=== PATIENT | female | born 1960 | race Caucasian/White ===

== ENCOUNTER 2024-04-11 14:22 | Emergency (ER) | payer BC, SELFPAY ==
--- NOTE | 2024-04-11 | ECG_ITS ---
Test Reason : CHEST PAIN Blood Pressure : / mmHG Vent. Rate : 084 BPM Atrial Rate : 084 BPM P-R Int : 176 ms QRS Dur : 076 ms QT Int : 368 ms P-R-T Axes : 057 033 025 degrees QTc Int : 434 ms Normal sinus rhythm Normal ECG When compared with ECG of 29-JUL-2012 08:21, No significant change was found Referred By: Generic ED Physician Electronically Signed By:LATANYA CH
--- NOTE | ~2024-04-11 | CT_ITS ---
EXAMINATION: CT HEAD WITHOUT IV CONTRAST CLINICAL INFORMATION: Uncontrolled HTN, VELIZ, vision changes COMPARISON: MRI brain 02/03/2013 TECHNIQUE: Contiguous axial imaging was performed from the skull base to vertex without intravenous contrast. Sagittal and coronal reformatted images were obtained. This CT examination was performed using dose optimization techniques as appropriate, variously including the following: * Automated exposure control * Adjustment of mA and/or kV according to patient size (this includes techniques or standardized protocols for targeted exams where dose is matched to indication/reason for exam; i.e. extremities or head) Use of iterative reconstruction technique DLP: 591 mGy-cm FINDINGS: There is no evidence of acute intracranial hemorrhage. No mass-effect or ventricular shift is noted. No acute, territorial loss of jonas-white differentiation. The ventricles and sulci are appropriate in size and configuration for the patient's stated age. Trace periventricular and subcortical white matter hypodensity is nonspecific but likely represents chronic microvascular ischemic change. No depressed calvarial fracture. Under pneumatized right frontal sinus. The mastoid air cells are clear. CT/CT head/brain wo IV con IMPRESSION: No acute intracranial hemorrhage or territorial loss jonas-white differentiation. Electronically signed by: Alessandro Ochoa MD 04/11/2024 06:10 PM EDT RP
--- NOTE | ~2024-04-11 | XR_ITS ---
EXAMINATION: XR CHEST CLINICAL INFORMATION: Chest pain COMPARISON: None available. TECHNIQUE: Frontal view of the chest was obtained. FINDINGS: Slight interstitial prominence. Bilateral groin. Slight elevation right hemidiaphragm. No pneumothorax. Trachea is midline. Cardiac mediastinal silhouette is not enlarged. Lower cervical spine hardware. Soft tissues are unremarkable. XR/XR chest 1V IMPRESSION: 1. Slight interstitial prominence. 2. Bilateral groin. 3. Slight elevation right hemidiaphragm. Electronically signed by: Leonid Umaña MD 04/11/2024 03:23 PM EDT
[2024-04-11 14:27] VITALS: BP 174/109; BP 180/120; PULSE 106; PULSE 77; RESP 18; TEMP 36.6; O2SAT 98
--- NOTE | 2024-04-11 15:29 | ED_ITS ---
HPI - General Adult General Chief complaint: General Medical Stated complaint: CP,HIGH BP 180/110 PER EMS Time Seen by Provider: 04/11/24 15:14 History of Present Illness ED Provider: Master HPI narrative: 63 y/o F patient; PMH HTN; presents from home via EMS with report of elevated blood pressure and chest pain. She reports associated headache, blurry vision, and lightheadedness. Symptoms for approx the last 2 weeks. She denies: nausea/vomiting/diarrhea, fever or chills, diarrhea, syncope, shortness of breath, cough/congestion. She states her blood pressures are typically elevated as she does not take blood pressure medication. She states a primary doctor approx 16 years ago recommended against blood pressure medication and she has not followed up about her blood pressure since then. She is an active smoker but denies alcohol use. Denies drug use other than marijuana. Related Data Previous Rx's ?Medication ?Instructions ?Recorded amlodipine 10 mg tablet 10 mg PO DAILY #30 tabs 04/11/24 Allergies Allergy/AdvReac Type Severity Reaction Status Date / Time No Known Allergies Allergy Verified 04/11/24 14:31 Review of Systems 2 Review of Systems: Yes all other systems are reviewed and are negative Neurologic: Denies Abnormal speech present and Denies Sensory deficit (Neuro) [facility] Past Medical History Attestation statement: The following information was validated with the patient. Source: unable to obtain Social History Social History Advance Directives: No Do you have a plan to hurt others: No Plan Physical Exam ED Vital Signs: Vital Signs - 24 hr 04/11/24 14:27 Temperature 97.9 F Pulse Rate 77 Respiratory Rate 18 Blood Pressure 174/109 H Pulse Oximetry 98 Oxygen Delivery Method Room Air BMI result Body Mass Index 30.0 Patient is markedly hypertensive Const General: cooperative Orientation/consciousness: patient oriented x3 HENMT Head: Yes normal to inspection and Yes atraumatic Eyes General: appearance normal, both eyes and all related structures Pupils: Equal, round and reactive pupils present EOM: EOMs intact bilaterally and No Nystagmus present Neck Neck: Yes normal visual inspection, Yes full ROM, Yes supple and No tender Chest Chest palpation & inspection: normal inspection of the chest and normal palpation of entire chest wall Resp Effort & Inspection: normal respiratory effort, able to speak in complete sentences, no cough and no respiratory distress Auscultation: clear to auscultation bilaterally Cardio Rate: regular rate Rhythm: regular rhythm Peripheral pulses: Peripheral pulses 2+ throughout GI Inspection: Yes normal to inspection, No Abdominal wall edema and No distended Palpation (GI): Soft to palpation, not firm, nontender, no guarding and not rigid Auscultation: normal bowel sounds Back/Spine/Pelvis Back: No back tenderness Neuro General: patient oriented x3 and gait normal Cranial nerves: Yes Equal, round and reactive pupils present and No Nystagmus present Cognition (Neuro): normal cognition Speech: No Abnormal speech present Motor exam (neuro): 5/5 motor strength present throughout Sensory Exam: No Sensory deficit (Neuro) Coordination: [id number] test normal and [id number] test normal Course Course Course Narrative: Patient is markedly hypertensive. Will obtain EKG, CXR, and basic labs. Labs reviewed. No leukocytosis. Troponin negative. 2nd troponin ordered. Ua contaminated but patient is not having urinary symptoms. CXR unremarkable. Added CT Head. CT head unremarkable. 2nd troponin negative. Patient declined nitroglycerin. No evidence of end-organ damage at this time. Discussed with patient option for admission for uncontrolled hypertension given risk of hypertensive urgency. Patient declined and would prefer to be discharged to home. Discussed with patient that uncontrolled hypertension can cause multiple permanent deficits. Patient voiced understanding. Will start on Amlodipine 10mg PO OD. Recommend patient follow up with her PCP within the next 1 - 2 days. Plan: Discharge to home with PCP follow up Return precautions given Medical Decision Making Lab Data 04/11/24 15:29 04/11/24 15:29 Labs: Lab Results 04/11/24 04/11/24 04/11/24 Range/Units 15:29 15:56 17:56 WBC 9.5 (4.8-10.8) X10*3/uL RBC 4.82 (4.20-5.50) X10*6/uL Hgb 14.3 (12.0-16.0) g/dl Hct 43.0 (37.0-47.0) % MCV 89.2 (80.0-98.0) fL MCH 29.7 (27.0-33.0) pg MCHC 33.3 (31.0-35.0) g/dl RDW 13.1 (11.0-16.0) % Plt Count 226 (160-400) X10*3/uL MPV 9.5 (9.4-12.3) fL Immature Gran % (Auto) 0.4 (0.0-0.4) % Neut % (Auto) 59.6 (45-73) % Lymph % (Auto) 30.7 (20-40) % Monona % (Auto) 6.8 (2-11) % Eos % (Auto) 1.4 (0-4) % Baso % (Auto) 1.1 (0-2) % Lymph # (Auto) 2.9 (1.2-4.9) X10*3/uL Monona # (Auto) 0.7 (0.1-1.2) X10*3/uL Eos # (Auto) 0.1 (0.0-0.4) X10*3/uL Baso # (Auto) 0.1 (0.0-0.2) X10*3/uL Abs Immat Gran (auto) 0.04 H (0.00-0.03) X10*3/uL Absolute Neuts (auto) 5.7 (2.0-8.3) x10*3/uL Absolute Nucleated RBC 0.000 (0.0-0.012) X10*3/uL Nucleated RBC % (auto) 0.0 (0.0-0.2) /100WBC Sodium 140 (135-145) mmol/L Potassium 4.2 (3.3-5.1) mmol/L Chloride 107 (96-108) mmol/L Carbon Dioxide 25 (22-29) mmol/L Anion Gap 12 (12-20) BUN 16 (9-16) mg/dL Creatinine 0.94 (0.5-1.4) mg/dL Estim Creat Clear Calc 64.0 Estimated GFR > 60 Random Glucose 79 (60-115) mg/dL Calcium 10.0 (8.4-10.2) mg/dL Magnesium 2.2 (1.6-2.6) mg/dL Total Bilirubin 0.2 (0.0-1.0) mg/dL Direct Bilirubin < 0.2 (0.0-0.5) mg/dL AST 28 (5-31) U/L ALT 36 H (0-31) U/L Alkaline Phosphatase 89 (39-117) U/L Troponin I High Sens 3.4 2.8 (<3.5-17.0) ng/L Total Protein 6.9 (6.5-8.0) g/dL Albumin 4.0 (3.5-5.0) g/dL Urine Color Yellow Urine Appearance Cloudy Urine pH 5.5 (5.0-9.0) Ur Specific Irving 1.020 (1.005-1.025) Urine Protein Negative (Neg-Trace) mg/dL Urine Glucose (UA) Negative (Negative) mg/dL Urine Ketones Negative (Negative) mg/dL Urine Blood Negative (Negative) Urine Nitrite Negative (Negative) Ur Leukocyte Esterase Trace H (Negative) Urine RBC 0-2 (0-2) /HPF Urine WBC 6-10 H (0-5) /HPF Ur Squamous Epith Cells 11-20 (0-2) /HPF Urine Bacteria 1+ (None Seen) Hyaline Casts 0-2 (0-2) /LPF Independent Interpretation I performed an independent interpretation of an: EKG Interpretation: NSR 84BPM without ischemic changes Radiology Impression Discussion of test interpretation with radiology: I have reviewed the radiologist's reading. Radiologist Impression: Ordering Physician: Tish Hobson Date of Service: 04/11/24 Procedure(s): XR chest 1V Accession Number(s): [id number] cc: Physician,None ; Tish Hobson~ EXAMINATION: XR CHEST CLINICAL INFORMATION: Chest pain COMPARISON: None available. TECHNIQUE: Frontal view of the chest was obtained. FINDINGS: Slight interstitial prominence. Bilateral groin. Slight elevation right hemidiaphragm. No pneumothorax. Trachea is midline. Cardiac mediastinal silhouette is not enlarged. Lower cervical spine hardware. Soft tissues are unremarkable. XR/XR chest 1V IMPRESSION: 1. Slight interstitial prominence. 2. Bilateral groin. 3. Slight elevation right hemidiaphragm. Electronically signed by: Leonid Umaña MD 04/11/2024 03:23 PM EDT RP Discharge Plan Discharge Clinical Impression: Hypertension, Chest pain Patient Disposition: Home, Self-Care Instructions: Chest Pain (DC), Hypertension (ED) Additional Instructions: As we discussed, you were seen for feeling unwell, chest pain, and high blood pressure. Your work up was reassuring other than your high blood pressure. I have sent a prescription for amlodipine to your pharmacy. Please take this once a day. Follow up with your PCP within the next 1 - 2 days for re-evaluation. Return to the emergency department for: Chest pain Difficulty breathing Passing out Prescriptions: New amlodipine 10 mg tablet 10 mg PO DAILY Qty: 30 0RF Print Language: Albanian
[2024-04-11 15:43] LABS: MANUAL DIFF FLAG NO
[2024-04-11 15:46] LABS: Basophils Absolute Auto 0.1 X10*3/uL (0.0-0.2); Basophils Percent Auto 1.1 % (0-2); Eosinophils Absolute Auto 0.1 X10*3/uL (0.0-0.4); Eosinophils Percent Auto 1.4 % (0-4); Hemoglobin 14.3 g/dl (12.0-16.0); Imm Gran Abs Auto 0.04 X10*3/uL (0.00-0.03); Imm Gran Pct Auto 0.4 % (0.0-0.4); Lymphocytes Absolute Auto 2.9 X10*3/uL (1.2-4.9); Lymphocytes Percent Auto 30.7 % (20-40); Mean Corpuscular HGB Conc 33.3 g/dl (31.0-35.0); Mean Corpuscular Hemoglobin 29.7 pg (27.0-33.0); Mean Corpuscular Volume 89.2 fL (80.0-98.0); Mean Platelet Volume 9.5 fL (9.4-12.3); Monocytes Absolute Auto 0.7 X10*3/uL (0.1-1.2); Monocytes Percent Auto 6.8 % (2-11); Neutrophils Absolute Auto 5.7 x10*3/uL (2.0-8.3); Neutrophils Percent Auto 59.6 % (45-73); Platelet Count 226 X10*3/uL (160-400); Red Blood Count 4.82 X10*6/uL (4.20-5.50); Red Cell Distribution Width 13.1 % (11.0-16.0); White Blood Count 9.5 X10*3/uL (4.8-10.8)
[2024-04-11 16:01] LABS: Alanine Aminotransferase 36 U/L (0-31); Alkaline Phosphatase 89 U/L (39-117); Anion Gap 12 (12-20); Aspartate Amino Transferase 28 U/L (5-31); Bilirubin Direct < 0.2 mg/dL (0.0-0.5); Bilirubin Total 0.2 mg/dL (0.0-1.0); Blood Urea Nitrogen 16 mg/dL (9-16); Carbon Dioxide 25 mmol/L (22-29); Chloride 107 mmol/L (96-108); Estimated Glomerular Filt Rate > 60; Glucose Random 79 mg/dL (60-115); Magnesium 2.2 mg/dL (1.6-2.6); Potassium 4.2 mmol/L (3.3-5.1); Sodium 140 mmol/L (135-145); Total Protein 6.9 g/dL (6.5-8.0)
[2024-04-11 16:02] LABS: Appearance Urine Cloudy; Color Urine Yellow; Glucose Urine UA Negative (Negative); Leukocyte Esterase Urine Trace (Negative); Nitrite Urine Negative (Negative); PH 5.5 (5.0-9.0); UMIC TRIGGER UACC YES; Urine Blood Negative (Negative); Urine Ketones Negative (Negative); Urine Protein Negative (Neg-Trace)
[2024-04-11 16:03] LABS: Troponin-I High Sensitivity 3.4 ng/L (<3.5-17.0)
[2024-04-11 16:05] LABS: Bacteria Urine 1+ (None Seen); Hyaline Casts Urine 0-2 /LPF (0-2); RBC Urine 0-2 /HPF (0-2); UACC Culture Trigger YES
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
[2024-04-11 18:23] LABS: Troponin-I High Sensitivity 2.8 ng/L (<3.5-17.0)
[2024-04-11 18:30] VITALS: BP 174/108
== END 2024-04-11 19:08 | disposition home or self-care (01) ==
PROVIDERS: Physician Assistant; Emergency Provider Emergency Medicine
DX: R07.89 Other chest pain (principal); R51.9 Headache, unspecified; I10 Essential (primary) hypertension; Z79.899 Other long term (current) drug therapy
CPT/HCPCS: 36415; 70450; 71045; 80048; 80076; 81001; 81003; 83735; 84484; 85025; 87086; 87088; 87186; 93005; 99284

== ENCOUNTER 2024-04-13 12:08 | Emergency (ER) | payer SELFPAY ==
[2024-04-13 12:15] VITALS: BP 177/101; BP 220/130; PULSE 106; PULSE 84; RESP 18; TEMP 36.9; O2SAT 98; BMI 25.7
--- NOTE | 2024-04-13 12:26 | ED.GENADULT ---
HPI - General Adult General Chief complaint: General Medical Stated complaint: PT STS STRESS @WK,HIGH BP 220/130,VELIZ,VISION CHANGE Time Seen by Provider: 04/13/24 12:13 Source: patient, EMS and old records reviewed Mode of arrival: EMS Limitations: no limitations History of Present Illness ED Provider: ROBBIE MACIAS narrative: 63 yo female with PMH of uncontrolled HTN, seizures not on AEDs, just seen here on 04/11 negative EKG, normal Cr, trop flat x 2, CT head normal - seen for BP elevation noted at work on 04/11 her work up was reassuring and she was discharged on 10mg amlodipine she has never been on HTN medications despite high readings by doctors office. She was not able to fill the Rx today. 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 She has no chest pain no change in headache. She never took the medication but did pick it up today. MD complaint: HTN Onset (ago): year(s) Location: head Radiation: non-radiation Severity: mild Quality: aching Pain Consistency: constant Relieving factors: none Exacerbating factors: none Associated symptoms: denies other symptoms Treatments prior to arrival: none Related Data Previous Rx's ?Medication ?Instructions ?Recorded amlodipine 10 mg tablet 10 mg PO DAILY #30 tabs 04/11/24 Allergies Allergy/AdvReac Type Severity Reaction Status Date / Time No Known Allergies Allergy Verified 04/13/24 12:18 Review of Systems Review of Systems: Constitutional : No Fever, No Chills, No Fatigue ENT/Mouth : No sore throat, No Rhinorrhea Eyes: No Eye Pain, No Swelling, No Redness Cardiovascular : No Chest Pain, No SOB, No Dyspnea on Exertion Respiratory : No Cough, No Sputum Gastrointestinal : No Nausea, No Vomiting, No Diarrhea, No abdominal Pain Genitourinary : No Dysuria, No Urinary Frequency, No Hematuria, Musculoskeletal : No joint pain, No Myalgias, No Joint Swelling Skin : No Skin Lesions, No rash Neuro : No Weakness, No Numbness, No Dizziness, positive Headache Psych : No Anxiety/Panic, No Depression Heme/Lymph: No Bruising, No Bleeding,No Lymphadenopathy Endocrine : No Polyuria, No Polydipsia All other systems reviewed and are negative PMFSH Past Medical History Attestation statement: The following information was validated with the patient. Source: old records reviewed Medical History Hypertension Anxiety Social History Social History Substance Use Type: Marijuana Physical Exam ED Vital Signs: Vital Signs - 24 hr 04/13/24 12:15 Temperature 98.5 F Pulse Rate 84 Respiratory Rate 18 Blood Pressure 177/101 H Pulse Oximetry 98 Oxygen Delivery Method Room Air BMI result Body Mass Index 25.7 Appearance: Alert. Oriented X3. No acute distress. Eyes: Pupils equal, round and reactive to light. ENT: Pharynx normal. Neck: Normal inspection. Neck supple. CVS: Normal heart rate and rhythm. Pulses normal. Respiratory: No respiratory distress. Breath sounds normal. Abdomen: Soft and nontender. Skin: Skin warm and dry. Normal skin color. Normal skin turgor. Extremities: No lower extremity edema. No calf ttp Neuro: Oriented X 3. No motor deficit. No sensory deficit. 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 History obtained from or confirmed by: EMS External Record Review External record reviewed: Inpatient record Discharge Plan Discharge Clinical Impression: Chronic hypertension Patient Disposition: Home, Self-Care Instructions: Chronic Hypertension (ED) Additional Instructions: take the amlodipine tomorrow you were given a dose today remember your doctor should be following up next week to make sure it is working return for any worsening symptoms or concerns rest and take it easy Prescriptions: No Action amlodipine 10 mg tablet 10 mg PO DAILY Qty: 30 0RF Print Language: Azerbaijani
[2024-04-13 12:29] VITALS: BP 177/101
[2024-04-13] MEDS: amLODIPine Besylate 10 MG TABLET PO (12:29)
--- NOTE | 2024-04-13 12:30 | PC.NURSE ---
pt a&ox3, manager cardiac applied nsr 90s, pt notably hypertensive- pt medicated per order, call nichols within reach, will continue to monitor
[2024-04-13 13:17] VITALS: BP 152/96; PULSE 81; RESP 20; TEMP 36.8; O2SAT 98
[2024-04-13] MEDS: Acetaminophen 325 MG TABLET 650 MG PO (14:30)
--- NOTE | 2024-04-13 14:31 | PC.NURSE ---
pt medicated with tylenol for headache, additionally pt wanting to see provider as she is upset about not feeling well, pt also stated I need a week or two off work and a note for that as well this nurse explained she needed to follow up with her pcp and continue to take her BP medications. Pt became upset stating she has no pcp- lists of PCPs were offered which she declined to take.
--- NOTE | 2024-04-13 14:53 | PC.NURSE ---
pt came out from room stating that she wanted to now leave that her HR department is going to help her set up a PCP as she continued to refuse the list of PCPs available in the area. Pt also requested a work note for a few days as this nurse had told her she could not get a work note for a few weeks. this nurse gave her the work note and she is discharging as she is no longer wanting to see the provider
[2024-04-13 14:54] VITALS: BP 141/76; PULSE 88; RESP 15; TEMP 36.8; O2SAT 98
== END 2024-04-13 14:55 | disposition home or self-care (01) ==
PROVIDERS: Emergency Provider Emergency Medicine
DX: I10 Essential (primary) hypertension (principal); R51.9 Headache, unspecified; N39.0 Urinary tract infection, site not specified; B96.20 Unspecified Escherichia coli [E. coli] as the cause of diseases classified elsewhere; F41.9 Anxiety disorder, unspecified
CPT/HCPCS: 99283; 99284